=== PATIENT | female | born 2005 ===

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

== ENCOUNTER 2024-01-04 13:22 | Outpatient (AMB) | payer OTHER, SELFPAY ==
[2024-01-04 13:23] VITALS: BP 116/74; PULSE 91; O2SAT 99; BMI 35.5
--- NOTE | 2024-01-04 13:23 | A.OFFPC_ITS ---
Vital Signs 01/04/24 13:23 Height 5 ft 6 in Weight 220 lb 0.4 oz BMI 35.5 BP 116/74 Blood Pressure Location Lt brachial Position Sitting Pulse 91 Pulse Source Pulse Oximeter Pulse Oximetry (%) 99 Oxygen Delivery Method Room Air Intake Visit Reasons: new patient physical Meatman Required: No Allergies amoxicillin [From Augmentin] Allergy (Verified 01/04/24 13:35) Hives clavulanic acid [From Augmentin] Allergy (Verified 01/04/24 13:35) Hives Penicillins [PCN] Allergy (Verified 01/04/24 13:35) Hives Medication List - Last Reconciled 01/04/24 by Kenisha Booker PA-C albuterol sulfate 90 mcg/actuation (Ventolin HFA) inhalation cetirizine 10 mg PO DAILY lamotrigine 50 mg PO DAILY sertraline mg PO Tobacco use date assessed: 01/04/24 Dental Screening Dental Screen Date: 01/04/24 Did you have a dental visit in the last 12 months?: Yes Did you have a dental problem in the last 6 months where you did not have access to dental care?: No Was dental information given to patient?: Patient has dentist HPI new patient physical HPI Details 18-year-old female with no documented [facility] medical history coming to the office for the 1st time. Today she tells us she was previously seen by [facility] through [place] and does also follow with should any gynecology for routine Pap smears last completed this month. 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 She also follows with Trish Doyle for Psychiatry and [facility] for counseling. She feels her anxiety and depression is well managed. She does mentioned feeling occasionally fatigued but otherwise feels generally well. [facility] Surgical History History of lobectomy of lung Social History Housing: Apartment Alcohol intake: never Patient Tobacco Use Status: Never used Tobacco e-Cigarette/Vaping Use: Never Used service: No Current occupational status: employed Current occupation: Cognitive needs: No Hearing needs: No Vision needs: No Female Reproductive History Menstrual control method: none Questionnaire PHQ-9 Over the last 2 weeks, how often have you been bothered by any of the following problems? 1. Little interest or pleasure in doing things: more than half the days 2. Feeling down, depressed, or hopeless: more than half the days 3. Trouble falling or staying asleep, or sleeping too much: not at all 4. Feeling tired or having little energy: more than half the days 5. Poor appetite or overeating: more than half the days 6. Feeling bad about yourself - or that you are a failure or have let yourself or your family down: not at all 7. Trouble concentrating on things, such as reading the newspaper or watching television: not at all 8. Moving or speaking so slowly that other people could have noticed. Or the opposite - being so fidgety or restless that you have been moving around a lot more than usual: not at all 9. Thoughts that you would be better off or of hurting yourself in some way: not at all Total score: 8 Depression Screening Interpretation: Positive Depression Screening Follow-up: Existing condition and In treatment Depression Screening Done: Yes 64545 - PHQ-9 Billing: Yes Source: Developed by Drs. Darnell Wilcox, Carly Almaguer, Carlos Franco and colleagues, with an educational jessica from [employer]. Thrive Questionnaire Date Thrive assessed: 12/28/23 I am a: Patient What is your living situation today?: I have a steady place to live Within the past 12 months, did the food you bought not last and you didn't have the money to get more?: Sometimes True Within the past 12 months, did you worry whether your food would run out before you got money to buy more?: Sometimes True Do you have trouble paying for medicines?: No Do you have trouble getting transportation to medical appointments?: No Do you have trouble paying your heating and electricity bill?: No Do you have trouble taking care of your child, family member or friend?: No Do you have trouble with day-to-day activities such as bathing, preparing meals, shopping, managing finances, etc.?: No Are you currently unemployed and looking for a job?: No Are you interested in more education?: Yes Please select the resources that you would like help with: None Currently or been in a relationship where the following occur: No concerns reported THRIVE Score: 2 AUDIT C Alcohol Use Questionnaire (AUDIT-C) 1. How often do you have a drink containing alcohol?: Never 3. How often do you have six or more drinks on one occasion?: Never Total Score: 0 KARL-7 AMB Questionnaire KARL-7 Date KARL - 7 assessed: 01/04/24 Feeling nervous, anxious, or on edge: 2 = More than half the days Not being able to stop or control worryin = More than half the days Worrying too much about different things: 2 = More than half the days Trouble relaxin = Not at all Being so restless that it is hard to sit still: 0 = Not at all Becoming easily annoyed or irritable: 2 = More than half the days Feeling afraid as if something awful might happen: 0 = Not at all Total KARL-7 score (0-4 normal; 5-9 mild; 10-14 moderate; 15-21 severe): 8 Source: Developed by Drs. Darnell Wilcox, Carly Almaguer, Carlos Franco and colleagues, with an educational jessica from [employer]. KARL-7 Assessment Billing KARL-7 Assessment Tool: KARL-7 Assessment 80712 Review of Systems Const Denies body aches, Reports fatigue, Denies fever(s), Denies frequent falls, Denies headache(s) and Denies weakness Eyes Reports no additional complaints and Denies change in vision ENT Denies dysphagia, Denies dizziness, Denies facial pain, Denies headache(s), Denies nasal congestion and Denies odynophagia Card Denies chest pain, Denies syncope, Denies irregular heart rhythm, Denies leg edema, Denies lightheadedness and Denies dyspnea Resp Denies cough and Denies dyspnea GI Denies constipation, Denies dysphagia, Denies dyspepsia, Denies diarrhea, Denies nausea, Denies odynophagia and Denies vomiting Denies urinary frequency, Denies dysuria, Denies urinary hesitancy and Denies urinary urgency Musc Denies back pain and Denies myalgias Skin/Breast Reports system reviewed and no additional complaints, except as documented Neuro Denies dizziness, Denies syncope, Denies frequent falls, Denies headache(s) and Denies weakness Psych Reports no additional complaints Endo Reports fatigue Physical exam (Primary Care) Vital Signs: Last Vital Signs Pulse 91 01/04/24 13:23 BP 116/74 01/04/24 13:23 Pulse Ox 99 01/04/24 13:23 Oxygen Delivery Method Room Air 01/04/24 13:23 BMI result Body Mass Index 35.5 Tobacco/Smoking Status: Tobacco use Status Tobacco use date assessed 01/04/24 01/04/24 13:26 Patient Tobacco Use Status Never used Tobacco 01/04/24 13:39 e-Cigarette/Vaping Use Never Used 01/04/24 13:39 PHQ-9: PHQ-9 Score PHQ-9: Total score 8 01/04/24 13:40 Depression Screening Interpretation: Positive Depression Screening Follow-up: Existing condition and In treatment Thrive Assessment: Date of Thrive Assessment Date Thrive assessed 12/28/23 01/04/24 13:26 Currently or been in a relationship where the following occur: No concerns reported Const General: cooperative, healthy appearing, comfortable and no acute distress Orientation/consciousness: patient oriented x3 HENMT Head: Yes normocephalic Ears: hearing grossly normal bilaterally, external ears normal, TM's normal bilaterally and EAC's normal General nose exam: Normal external nose present Face and sinus: Yes normal facial exam and Yes sinuses nontender Mouth: Normal oral and palatal mucosa present and tongue normal Throat: Yes posterior oropharynx normal Eyes General: appearance normal, both eyes and all related structures Conjunctivae: conjunctivae normal Pupils: Equal, round and reactive pupils present EOM: EOMs intact bilaterally and No Nystagmus present Neck Neck: Yes normal visual inspection, Yes full ROM and Yes no lymphadenopathy Chest Chest palpation & inspection: normal inspection of the chest Resp Effort & Inspection: normal respiratory effort Auscultation: clear to auscultation bilaterally, no crackles, no rales, no rhonchi, no wheezes and breath sounds present Cardio Rate: regular rate Rhythm: regular rhythm Peripheral pulses: radial pulses present and dorsalis pedis present GI Inspection: Yes normal to inspection and No Abdominal wall edema Palpation (GI): Soft to palpation, not firm and nontender Auscultation: normal bowel sounds Rectal Exam - Female: deferred General: Yes no CVA tenderness Back/Spine/Pelvis Back: no CVA tenderness Skin General skin exam: no rashes or lesions noted Neuro General: patient oriented x3 Cranial nerves: Yes Equal, round and reactive pupils present, Yes Midline tongue present, Yes Ability to bilaterally elevate shoulders present and No Nystagmus present Gait exam (Neuro): Normal gait present Extrem General: Yes normal to inspection, Yes full ROM, No no pedal edema and No edema Psych Speech and movement: Normal speech and movement present Affect: normal affect Insight: Good insight present (Psych) Judgement: Good judgement present (Psych) Assessment and Plan Assessment & Plan (1) Mood disorder: Comment: Follows with [facility] for counseling Code(s): F39 - Unspecified mood [affective] disorder Plan: Continue on current med regimen. (2) Depression: Comment: Follows with Trish Doyle [facility] for counseling Code(s): F32.A - Depression, unspecified Plan: PHQ 9 and KARL-7 mildly positive today patient denies active feelings of anxiety or depression. Continue on current med regimen. She does mentioned she is not completely satisfied with [facility] for counseling and would like to be referred to another counselor at this time. Referral placed today. (3) Anxiety: Comment: Follows with Trish Doyle [facility] for counseling Code(s): F41.9 - Anxiety disorder, unspecified Plan: PHQ 9 and KARL-7 mildly positive today patient denies active feelings of anxiety or depression. Continue on current med regimen. (4) Asthma: Code(s): J45.909 - Unspecified asthma, uncomplicated Plan: She uses her inhaler daily during allergy season however otherwise uses it very rarely. Continue on current regimen and continue to avoid triggers such as allergens and smoke. (5) Annual physical exam: Code(s): Z00.00 - Encounter for general adult medical examination without abnormal findings Plan: Patient is up-to-date on all recommended routine screenings and vaccinations for her age. Updated blood work ordered today and follow up in 1 year or sooner if new problems arise. Plan This note was constructed using voice recognition software. While every effort has been made to ensure accuracy and exercise physiologist, still areas may have been included sometimes these areas may affect the content or meeting of the given symptoms. Total time spent caring for the patient today was 30 minutes. This includes time spent before the visit reviewing the chart, time spent during the visit, and time spent after the visit and documentation. Orders: Orders Comprehensive Met. Panel Today Z00.00 - Encounter for general adult medical examination without abnormal findings Vitamin B12 and Folate Today Z00.00 - Encounter for general adult medical examination without abnormal findings IRON PROFILE Today Z00.00 - Encounter for general adult medical examination without abnormal findings Complete Blood Count Auto Diff Today Z00.00 - Encounter for general adult medical examination without abnormal findings Free T4 (Free Thyroxine) Today Z00.00 - Encounter for general adult medical examination without abnormal findings TSH reflex Free T4 Today Z00.00 - Encounter for general adult medical examination without abnormal findings Vitamin D 25-OH (D2 and D3) Today Z00.00 - Encounter for general adult medical examination without abnormal findings Referrals Counseling Referral F32.A - Depression, unspecified, F39 - Unspecified mood [affective] disorder, F41.9 - Anxiety disorder, unspecified Coding Level of Care Code New Pt Prev Care 18-39yr([id number] Diagnoses Mood disorder F39 Depression F32.A Anxiety F41.9 Asthma J45.909 Annual physical exam Z00.00 Additional Codes KARL-7 Assessment Billing - KARL-7 Assessment Tool: KARL-7 Assessment 17058 ([id number])
== END 2024-01-04 13:53 | disposition home or self-care (01) ==
DX: F39 Unspecified mood [affective] disorder (principal); F32.A Depression, unspecified; F41.9 Anxiety disorder, unspecified; J45.909 Unspecified asthma, uncomplicated; Z00.00 Encounter for general adult medical examination without abnormal findings

== ENCOUNTER 2024-01-04 13:22 | Outpatient (REF) | payer OTHER, SELFPAY ==
[2024-01-04 14:32] LABS: Basophils Absolute Auto 0.1 X10*3/uL (0.0-0.2); Basophils Percent Auto 0.6 % (0-2); Eosinophils Absolute Auto 0.1 X10*3/uL (0.0-0.4); Eosinophils Percent Auto 1.2 % (0-4); Hematocrit 44.1 % (37.0-47.0); Hemoglobin 14.5 g/dl (12.0-16.0); Imm Gran Abs Auto 0.03 X10*3/uL (0.00-0.03); Imm Gran Pct Auto 0.3 % (0.0-0.4); Lymphocytes Absolute Auto 2.4 X10*3/uL (1.2-4.9); Lymphocytes Percent Auto 28.3 % (20-40); MANUAL DIFF FLAG SCAN; Mean Corpuscular HGB Conc 32.9 g/dl (31.0-35.0); Mean Corpuscular Hemoglobin 27.9 pg (27.0-33.0); Mean Corpuscular Volume 84.8 fL (80.0-98.0); Mean Platelet Volume 9.7 fL (9.4-12.3); Monocytes Absolute Auto 0.7 X10*3/uL (0.1-1.2); Monocytes Percent Auto 7.8 % (2-11); Neutrophils Absolute Auto 5.3 x10*3/uL (2.0-8.3); Neutrophils Percent Auto 61.8 % (45-73); PLT CLUMP 1; Red Cell Distribution Width 13.2 % (11.0-16.0); SCAN SMEAR FLAG 1; White Blood Count 8.6 X10*3/uL (4.8-10.8)
[2024-01-04 15:05] LABS: Alanine Aminotransferase 15 U/L (0-31); Alkaline Phosphatase 91 U/L (39-117); Anion Gap 11 (12-20); Aspartate Amino Transferase 24 U/L (5-31); Bilirubin Total 0.3 mg/dL (0.0-1.0); Blood Urea Nitrogen 14 mg/dL (9-16); Calcium 9.3 mg/dL (8.4-10.2); Carbon Dioxide 25 mmol/L (22-29); Chloride 109 mmol/L (96-108); Estimated Glomerular Filt Rate > 60; Glucose Random 87 mg/dL (60-115); Iron 85 mcg/dL (30-160); Percent Iron Saturation 29 % (15-50); Sodium 140 mmol/L (135-145); Total Iron Binding Capacity 296 mcg/dL (228-428); Total Protein 7.6 g/dL (6.5-8.0); Unsaturated Iron Binding 211 ug/dL
[2024-01-04 15:19] LABS: Platelet Count 288 X10*3/uL (160-400); SLIDE REVIEW VERIFIED
[2024-01-04 15:21] LABS: Free T4 (Free Thyroxine) 0.93 ng/dL (0.71-1.85); TSH reflex Free T4 1.53 uIU/mL (0.32-4.0)
[2024-01-04 15:31] LABS: Folate 11.9 ng/mL (> or = 4.0); Vitamin B12 478 pg/mL (200-900)
[2024-01-09 00:14] LABS: Vitamin D 25-OH, D2 <4 ng/mL; Vitamin D 25-OH, D3 20 ng/mL; Vitamin D 25-OH, Total 20 ng/mL (30-100)
== END 2024-01-04 13:23 | disposition home or self-care (01) ==
LOC: HO.LAB 13:22
DX: Z00.00 Encounter for general adult medical examination without abnormal findings (principal); F39 Unspecified mood [affective] disorder; F32.A Depression, unspecified; F41.9 Anxiety disorder, unspecified; J45.909 Unspecified asthma, uncomplicated
CPT/HCPCS: 36415; 80053; 82306; 82607; 82746; 83540; 84439; 84443; 85025; 96127; 99385

== ENCOUNTER 2024-02-08 15:29 | Outpatient (AMB) | payer OTHER, SELFPAY ==
--- NOTE | 2024-02-08 16:13 | AM.OFFVISNUR ---
Intake Visit Reasons: FluShot Allergies amoxicillin [From Augmentin] Allergy (Verified 01/04/24 13:35) Hives clavulanic acid [From Augmentin] Allergy (Verified 01/04/24 13:35) Hives Penicillins [PCN] Allergy (Verified 01/04/24 13:35) Hives Office Procedures Flu Questionnaire Does the patient have a severe egg allergy?: No Does the patient have severe life threatening allergies?: No Does the patient have a fever or illness today?: No Has the patient ever had Guillain-Sheridan Syndrome?: No Has the patient ever had any past reaction to a flu shot?: No Assessment & Plan Assessment & Plan Orders: Orders Influenza [id number] Immunization Today Z23 - Encounter for immunization Medications: New Fluarix Triv [id number] (PF) (flu vacc [id number] 6mos up(PF)) 0.5 mL IM ONCE 0.5 mL 0RF NS Z23 - Encounter for immunization
== END 2024-02-08 16:15 | disposition home or self-care (01) ==
LOC: HO.HMCH 15:30
DX: Z23 Encounter for immunization (principal)

== ENCOUNTER → 2024-02-08 15:29 | Outpatient (BNVA) | payer OTHER, SELFPAY | DX: Z23 Encounter for immunization (principal) | CPT/HCPCS: 90471; 90656 ==

== ENCOUNTER 2024-09-13 11:26 | Outpatient (AMB) | payer OTHER, SELFPAY ==
--- NOTE | 2024-09-13 11:30 | A.OFFPC_ITS ---
Vital Signs 09/13/24 11:32 Height 5 ft 6 in Weight 217 lb 8 oz BMI 35.1 BP 122/62 Blood Pressure Location Lt brachial Position Sitting Pulse 108 H Pulse Source Pulse Oximeter Temp 97.3 F Temp Source Temporal Artery Scan Pulse Oximetry (%) 98 Oxygen Delivery Method Room Air Intake Visit Reasons: follow up Intake Note: Patient is here to follow up on Asthma, Anxiety and medication review Commercial Makeup Artist Required: No Mapping Technician: Not Required per policy Accompanied by: Self / Same As Patient Allergies amoxicillin [From Augmentin] Allergy (Verified 09/13/24 11:49) Hives clavulanic acid [From Augmentin] Allergy (Verified 09/13/24 11:49) Hives Penicillins [PCN] Allergy (Verified 09/13/24 11:49) Hives Medication List - Last Reconciled 09/13/24 by Kenisha Booker PA-C albuterol sulfate 90 mcg/actuation (Ventolin HFA) inhalation cetirizine 10 mg PO DAILY cholecalciferol (vitamin D3) 25 mcg PO DAILY lamotrigine 50 mg PO DAILY sertraline mg PO Tobacco use date assessed: 09/13/24 Dental Screening Dental Screen Date: 09/13/24 Did you have a dental visit in the last 12 months?: Yes Did you have a dental problem in the last 6 months where you did not have access to dental care?: No Was dental information given to patient?: Patient has dentist HPI follow up HPI Details 19-year-old female with past medical his tory of asthma, anxiety, depression and mood disorder last seen 12/2023 coming in for follow up. Presenting with concerns regarding peripheral edema and hair thinning. Peripheral edema was noted during a vacation, likely exacerbated by higher salt intake and increased walking. The condition improved with the use of compression stockings, hydration, and leg elevation. Reports of significant hair thinning, with a family history of hair loss on her father's side. Patient inquired about the use of biotin supplements and minoxidil (Rogaine) for hair regrowth. Concerns about minoxidil toxicity to her pet cats were discussed due to ownership of cats. Patient has a stable mood history without current use of sertraline, lamotrigine, or other mood stabilizers. Previous therapy via [facility] has been discontinued. [facility] Surgical History History of lobectomy of lung Family History Other Mental health disorder Social History Housing: Apartment Alcohol intake: never Patient Tobacco Use Status: Never used Tobacco e-Cigarette/Vaping Use: Never Used Second Hand Smoke Exposure: No service: No Current occupational status: employed Current occupation: Cognitive needs: No Hearing needs: No Vision needs: No Questionnaire PHQ-9 Over the last 2 weeks, how often have you been bothered by any of the following problems? 1. Little interest or pleasure in doing things: not at all 2. Feeling down, depressed, or hopeless: not at all 3. Trouble falling or staying asleep, or sleeping too much: not at all 4. Feeling tired or having little energy: several days 5. Poor appetite or overeating: not at all 6. Feeling bad about yourself - or that you are a failure or have let yourself or your family down: not at all 7. Trouble concentrating on things, such as reading the newspaper or watching television: not at all 8. Moving or speaking so slowly that other people could have noticed. Or the opposite - being so fidgety or restless that you have been moving around a lot more than usual: not at all 9. Thoughts that you would be better off or of hurting yourself in some way: not at all Total score: 1 Depression Screening Interpretation: Negative Depression Screening Done: Yes Source: Developed by Drs. Darnell Wilcox, Carly Almaguer, Carlos Franco and colleagues, with an educational jessica from [employer] O[employer]. Thrive Questionnaire Date Thrive assessed: 09/11/24 I am a: Patient What is your living situation today?: I have a steady place to live Within the past 12 months, did the food you bought not last and you didn't have the money to get more?: Never true Within the past 12 months, did you worry whether your food would run out before you got money to buy more?: Never true Do you have trouble paying for medicines?: Yes Do you have trouble getting transportation to medical appointments?: No Do you have trouble paying your heating and electricity bill?: No Do you have trouble taking care of your child, family member or friend?: No Do you have trouble with day-to-day activities such as bathing, preparing meals, shopping, managing finances, etc.?: No Are you currently unemployed and looking for a job?: No Are you interested in more education?: No Please select the resources that you would like help with: None Currently or been in a relationship where the following occur: No concerns reported THRIVE Score: 0 AUDIT C Alcohol Use Questionnaire (AUDIT-C) 1. How often do you have a drink containing alcohol?: Never 3. How often do you have six or more drinks on one occasion?: Never Total Score: 0 KARL-7 AMB Questionnaire KARL-7 Date KARL - 7 assessed: 09/13/24 Feeling nervous, anxious, or on edge: 2 = More than half the days Not being able to stop or control worryin = Nearly every day Worrying too much about different things: 3 = Nearly every day Trouble relaxin = Several days Being so restless that it is hard to sit still: 0 = Not at all Becoming easily annoyed or irritable: 3 = Nearly every day Feeling afraid as if something awful might happen: 3 = Nearly every day Total KARL-7 score (0-4 normal; 5-9 mild; 10-14 moderate; 15-21 severe): 15 Source: Developed by Drs. Darnell Wilcox, Craly Almaguer, Carlos Franco and colleagues, with an educational jessica from [employer]. KARL-7 Assessment Billing KARL-7 Assessment Tool: KARL-7 Assessment 70925 Review of Systems Const Denies body aches, Denies chills, Denies fever(s), Denies headache(s) and Denies poor appetite Eyes Reports no additional complaints ENT Denies dysphagia, Denies dizziness, Denies headache(s) and Denies odynophagia Card Denies chest pain, Denies syncope, Denies edema, Denies irregular heart rhythm, Denies lightheadedness and Denies dyspnea Resp Denies cough and Denies dyspnea GI Denies abdominal pain, Denies constipation, Denies dysphagia, Denies diarrhea, Denies nausea, Denies odynophagia and Denies vomiting Reports no additional complaints Musc Reports no additional complaints and Denies abnormal gait Skin/Breast Reports system reviewed and no additional complaints, except as documented Neuro Denies abnormal gait, Denies dizziness, Denies syncope and Denies headache(s) Psych Reports no additional complaints Physical exam (Primary Care) Vital Signs: Last Vital Signs Temp 97.3 F 09/13/24 11:32 Pulse 108 H 09/13/24 11:32 BP 122/62 09/13/24 11:32 Pulse Ox 98 09/13/24 11:32 Oxygen Delivery Method Room Air 09/13/24 11:32 BMI result Body Mass Index 35.1 Tobacco/Smoking Status: Tobacco use Status Tobacco use date assessed 09/13/24 09/13/24 11:32 Patient Tobacco Use Status Never used Tobacco 09/13/24 11:32 e-Cigarette/Vaping Use Never Used 09/13/24 11:32 PHQ-9: PHQ-9 Score PHQ-9: Total score 1 09/13/24 11:32 Depression Screening Interpretation: Negative Thrive Assessment: Date of Thrive Assessment Date Thrive assessed 09/11/24 09/13/24 11:32 Currently or been in a relationship where the following occur: No concerns reported Const General: cooperative, healthy appearing, comfortable and no acute distress Orientation/consciousness: patient oriented x3 HENMT Head: Yes normocephalic Ears: hearing grossly normal bilaterally General nose exam: Normal external nose present Eyes General: appearance normal, both eyes and all related structures Conjunctivae: conjunctivae normal Neck Neck: Yes full ROM and Yes no lymphadenopathy Resp Effort & Inspection: normal respiratory effort Auscultation: clear to auscultation bilaterally, no crackles, no rales, no rhonchi and no wheezes Cardio Rate: regular rate Rhythm: regular rhythm Skin General skin exam: no rashes or lesions noted Neuro General: patient oriented x3 Gait exam (Neuro): Normal gait present Extrem General: Yes normal to inspection, Yes full ROM and No edema Psych Affect: normal affect Attitude: cooperative Insight: Good insight present (Psych) Judgement: Good judgement present (Psych) Coding Level of Care Code Est Pt Level 3 (85071) Diagnoses Asthma J45.909 Depression F32.A Mood disorder F39 Anxiety F41.9 Additional Codes KARL-7 Assessment Billing - KARL-7 Assessment Tool: KARL-7 Assessment 99323 ([id number]) Assessment & Plan Assessment & Plan (1) Asthma: Code(s): J45.909 - Unspecified asthma, uncomplicated Category: Medical Plan: Asthma currently controlled on present medications. Continue on albuterol prn.? Avoid triggers such as allergies. (2) Depression: Code(s): F32.A - Depression, unspecified Category: Medical Plan: Patient is no longer following with psychiatry or counseling in his discontinued her medications. This abrupt discontinuation happen after loss of insurance. She feels good without these medications and would like to continue to keep off of them at this time and declines the need for counseling. She agrees to reach out if anything should change. (3) Mood disorder: Code(s): F39 - Unspecified mood [affective] disorder Category: Medical Plan: See above (4) Anxiety: Code(s): F41.9 - Anxiety disorder, unspecified Category: Medical Plan: See above Plan The patient presented with concerns of peripheral edema and hair thinning. The peripheral edema has resolved through dietary modifications and physical measures, including compression stockings and hydration. Regarding hair thinning, biotin-containing supplements and minoxidil were discussed as management options, along with safety precautions for her cats. She is stable neurologically and has discontinued previous mood-controlling medications. Vitamin D supplementation will be continued, and routine bloodwork is planned for later this year. Follow-up conversations will address asthma control and psychological well-being as needed. This note was constructed using voice recognition software. While every effort has been made to ensure accuracy and education assistant, still areas may have been included sometimes these areas may affect the content or meeting of the given symptoms. Total time spent caring for the patient today was 20 minutes. This includes time spent before the visit reviewing the chart, time spent during the visit, and time spent after the visit and documentation. Patient was informed and verbally consented to the use of an ambient scribe for clinic note document ation during this visit. Orders: Orders Free T4 (Free Thyroxine) Today F32.A - Depression, unspecified, Z00.00 - Encounter for general adult medical examination without abnormal findings Complete Blood Count Auto Diff Today F41.9 - Anxiety disorder, unspecified, Z 00.00 - Encounter for general adult medical examination without abnormal findings Comprehensive Met. Panel Today F41.9 - Anxiety disorder, unspecified, Z00.00 - Encounter for general adult medical examination without abnormal findings Vitamin B12 and Folate Today F32.A - Depression, unspecified, Z13.21 - Encounter for screening for nutritional disorder Vitamin D 25-OH Total Today F32.A - Depression, unspecified, Z00.00 - Encounter for general adult medical examination without abnormal findings TSH reflex Free T4 Today F32.A - Depression, unspecified, Z00.00 - Encounter for general adult medical examination without abnormal findings Medications: Refilled cholecalciferol (vitamin D3) 25 mcg PO DAILY 90 caps 3RF cholecalciferol (vitamin D3) 25 mcg PO DAILY 90 caps 3RF
[2024-09-13 11:32] VITALS: BP 122/62; PULSE 108; TEMP 36.3; O2SAT 98; BMI 35.1
--- OUTSIDE RECORDS SUMMARY | 2024-09-13 12:15 | XMS_ITS | Data Portability ---
Author Organization [facility], [id number] Address [address] [place] [address] Assessment No assessment recorded. Plan of Treatment Reminders Order Date Submit Date Provider Last Modified By Organization Details Last Modified Time Details Appointments None record ed. Lab None record ed. Referral None record ed. Procedures None record ed. Surgeries None record ed. Imaging None record ed. Medication Orders None record ed. Patient TargetsNo targets recorded. Patient InstructionsNo instructions recorded. Reason for Referral None Reported. Medical Equipment None Reported. Medications Name Sig Start Date Stop Date Status Note LastModified by Organization Details LastModified Time doxycycline hyclate 100 mg capsule TAKE 1 CAPSULE BY MOUTH TWICE A DAY FOR 7 DAYS active Not Available Not Available No t Available cetirizine 10 mg tablet TAKE 1 TABLET BY MOUTH EVERY DAY active Not Available Not Available No t Available polymyxin B sulfate 10,000 unit-trimethop rim 1 mg/mL eye drops INSTILL 1 DROP IN THE EYE EVERY 3 HOURS FOR 10 DAYS DO NOT EXCEED 6 DOSES IN 24 HOURS active Not Available Not Available No t Available sertraline 25 mg tablet TAKE 1 TABLET BY MOUTH EVERY DAY IN THE MORNING active Not Available Not Available No t Available ketoconazole 2 % topical cream APPLY TO AFFECTED AREA TWICE A DAY active Not Available Not Available No t Available fluticasone propionate 50 mcg/actuation nasal spray,suspensi on INSTILL 1 TO 2 SPRAYS IN BOTH NOSTRLS 2 TIMES A DAY active Not Available Not Available No t Available sertraline 50 mg tablet TAKE 1 AND 1/2 TABLETS BY MOUTH EVERY MORNING active Not Available Not Available No t Available doxycycline hyclate 100 mg tablet TAKE 1 TABLET BY MOUTH TWICE A DAY FOR 7 DAYS active Not Available Not Available No t Available Ventolin HFA 90 mcg/actuation aerosol inhaler INHALE 2-6 PUFFS EVERY 4 HOURS USE WITH SPACER CHAMBER NEEDED FOR WHEEZING/ SHORTNESS OF BREATH active Not Available Not Available No t Available Vitals None Recorded Social History None recorded. Functional Status None recorded. Mental Status None recorded. Family History Nothing Reported. Medical History No medical history recorded. Gynecological HistoryNo gynecological history recorded. Obstetrics History GPAL:G 0 P 0 0 0 0 Past Encounters Encounter ID Performer Location Encounter Start Date Encounter Closed Date Diagnosis/Indication Diagnosis SNOMED-CT Code Diagnosis ICD10 Code Diagnosis Note [id number] [facility] [facility] [place] [address] 03/06/2021 15:53:03 03/06/2021 17:22:49 [id number] [address] [place] [address] 05/18/2020 15:01:03 05/18/2020 17:19:11 Health Concerns Section Related Observation LastModified by Organization Detai ls LastModified Time None Recorded Concern Status LastModified by Organization Details LastModified Time None Recorded Advance Directives Directive None Recorded Payers Insurance Date Sequence Insurance Name Policy Number Policy Blair Covered Member ID Blair Member ID Guarantor Name 11/23/2022 1 [place]ICAID[place]: [facility] Samreen Clements [id number] Samreen Clements OBGyn Episode No OBEpisode recorded.
== END 2024-09-13 12:37 | disposition home or self-care (01) ==
LOC: HO.HMCH 11:27
DX: J45.909 Unspecified asthma, uncomplicated (principal); F32.A Depression, unspecified; F39 Unspecified mood [affective] disorder; F41.9 Anxiety disorder, unspecified

== ENCOUNTER → 2024-09-13 11:26 | Outpatient (BNVA) | payer OTHER, SELFPAY | DX: R60.0 Localized edema (principal); J45.909 Unspecified asthma, uncomplicated; F41.9 Anxiety disorder, unspecified; F32.A Depression, unspecified | CPT/HCPCS: 96127 ==

== ENCOUNTER 2025-01-06 11:38 | Outpatient (AMB) | payer OTHER, SELFPAY ==
[2025-01-06 11:44] VITALS: BP 102/60; PULSE 96; O2SAT 98; BMI 33.6
--- NOTE | 2025-01-06 11:44 | MHC.PC.OV ---
Vital Signs 01/06/25 11:44 Height 5 ft 6 in Weight 208 lb 8 oz BMI 33.6 BP 102/60 Blood Pressure Location Lt brachial Position Sitting Pulse 96 Pulse Source Pulse Oximeter Pulse Oximetry (%) 98 Oxygen Delivery Method Room Air Intake Visit Reasons: Annual Exam Faculty Research Physician Required: No Accompanied by: Self / Same As Patient Allergies amoxicillin (From Augmentin) Allergy (Verified 01/06/25 11:55) Hives clavulanic acid (From Augmentin) Allergy (Verified 01/06/25 11:55) Hives Penicillins (PCN) Allergy (Verified 01/06/25 11:55) Hives Medication List - Last Reconciled 01/06/25 by Kenisha Booker PA-C albuterol sulfate 90 mcg/actuation (Ventolin HFA) inhalation cetirizine 10 mg PO DAILY cholecalciferol (vitamin D3) 25 mcg PO DAILY norethindrone-e.estradiol-iron 1 mg-20 mcg (21)/75 mg (7) (04/29 (28)) 1 tab PO DAILY Tobacco use date assessed: 01/06/25 Dental Screening Dental Screen Date: 01/06/25 Did you have a dental visit in the last 12 months?: Yes Did you have a dental problem in the last 6 months where you did not have access to dental care?: No Was dental information given to patient?: Patient has dentist HPI Annual Exam HPI Details 19-year-old female with past medical history of asthma, anxiety, depression and mood disorder last seen 09/2024 coming in for annual exam. Presenting with an annual wellness visit and concerns related to depression and anxiety. Previously on sertraline, discontinued due to decreased libido. Currently seeing a therapist. Describes episodes of staring and blurred vision, discussed as potentially ADHD-related. 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 pap smears: Up-to-date through [facility] vaccines: [facility] History History of lobectomy of lung Family History Other Mental health disorder Social History Housing: Apartment Alcohol intake: never Patient Tobacco Use Status: Never used Tobacco e-Cigarette/Vaping Use: Never Used Second Hand Smoke Exposure: No service: No Current occupational status: employed Current occupation: Cognitive needs: No Hearing needs: No Vision needs: No Questionnaire PHQ-9 Over the last 2 weeks, how often have you been bothered by any of the following problems? 1. Little interest or pleasure in doing things: not at all 2. Feeling down, depressed, or hopeless: not at all 3. Trouble falling or staying asleep, or sleeping too much: not at all 4. Feeling tired or having little energy: several days 5. Poor appetite or overeating: not at all 6. Feeling bad about yourself - or that you are a failure or have let yourself or your family down: not at all 7. Trouble concentrating on things, such as reading the newspaper or watching television: not at all 8. Moving or speaking so slowly that other people could have noticed. Or the opposite - being so fidgety or restless that you have been moving around a lot more than usual: not at all 9. Thoughts that you would be better off or of hurting yourself in some way: not at all Total score: 1 Depression Screening Interpretation: Negative Depression Screening Done: Yes Source: Developed by Drs. Darnell Wilcox, Carly Almaguer, Carlos Franco and colleagues, with an educational jessica from [employer]. Thrive Questionnaire Date Thrive assessed: 09/11/24 I am a: Patient What is your living situation today?: I have a steady place to live Within the past 12 months, did the food you bought not last and you didn't have the money to get more?: Never true Within the past 12 months, did you worry whether your food would run out before you got money to buy more?: Never true Do you have trouble paying for medicines?: Yes Do you have trouble getting transportation to medical appointments?: No Do you have trouble paying your heating and electricity bill?: No Do you have trouble taking care of your child, family member or friend?: No Do you have trouble with day-to-day activities such as bathing, preparing meals, shopping, managing finances, etc.?: No Are you currently unemployed and looking for a job?: No Are you interested in more education?: No Please select the resources that you would like help with: None Currently or been in a relationship where the following occur: No concerns reported THRIVE Score: 0 AUDIT C Alcohol Use Questionnaire (AUDIT-C) 1. How often do you have a drink containing alcohol?: Never 3. How often do you have six or more drinks on one occasion?: Never Total Score: 0 KARL-7 AMB Questionnaire KARL-7 Date KARL - 7 assessed: 09/13/24 Feeling nervous, anxious, or on edge: 2 = More than half the days Not being able to stop or control worryin = Nearly every day Worrying too much about different things: 3 = Nearly every day Trouble relaxin = Several days Being so restless that it is hard to sit still: 0 = Not at all Becoming easily annoyed or irritable: 3 = Nearly every day Feeling afraid as if something awful might happen: 3 = Nearly every day Total KARL-7 score (0-4 normal; 5-9 mild; 10-14 moderate; 15-21 severe): 15 Source: Developed by Drs. Darnell Wilcox, Carly Almaguer, Carlos Franco and colleagues, with an educational jessica from [employer]. Review of Systems Const Denies body aches, Denies chills, Denies fever(s), Denies headache(s) and Denies poor appetite Eyes Reports no additional complaints ENT Denies dysphagia, Denies dizziness, Denies headache(s) and Denies odynophagia Card Denies chest pain, Denies syncope, Denies edema, Denies irregular heart rhythm, Denies lightheadedness and Denies dyspnea Resp Denies cough and Denies dyspnea GI Denies abdominal pain, Denies constipation, Denies dysphagia, Denies diarrhea, Denies nausea, Denies odynophagia and Denies vomiting Reports no additional complaints Musc Reports no additional complaints and Denies abnormal gait Skin/Breast Reports system reviewed and no additional complaints, except as documented Neuro Denies abnormal gait, Denies dizziness, Denies syncope and Denies headache(s) Psych Reports no additional complaints Physical exam (Primary Care) Vital Signs: Last Vital Signs Pulse 96 01/06/25 11:44 BP 102/60 01/06/25 11:44 Pulse Ox 98 01/06/25 11:44 Oxygen Delivery Method Room Air 01/06/25 11:44 BMI result Body Mass Index 33.6 Tobacco/Smoking Status: Tobacco use Status Tobacco use date assessed 01/06/25 01/06/25 11:52 Patient Tobacco Use Status Never used Tobacco 01/06/25 11:52 e-Cigarette/Vaping Use Never Used 01/06/25 11:52 PHQ-9: PHQ-9 Score PHQ-9: Total score 1 01/06/25 12:24 Depression Screening Interpretation: Negative Thrive Assessment: Date of Thrive Assessment Date Thrive assessed 09/11/24 01/06/25 11:52 Currently or been in a relationship where the following occur: No concerns reported Const General: cooperative, healthy appearing, comfortable and no acute distress Orientation/consciousness: patient oriented x3 HENMT Head: Yes normocephalic Ears: hearing grossly normal bilaterally General nose exam: Normal external nose present Eyes General: appearance normal, both eyes and all related structures Conjunctivae: conjunctivae normal Neck Neck: Yes full ROM and Yes no lymphadenopathy Resp Effort & Inspection: normal respiratory effort Auscultation: clear to auscultation bilaterally, no crackles, no rales, no rhonchi and no wheezes Cardio Rate: regular rate Rhythm: regular rhythm Skin General skin exam: no rashes or lesions noted Neuro General: patient oriented x3 Gait exam (Neuro): Normal gait present Extrem General: Yes normal to inspection, Yes full ROM and No edema Psych Affect: normal affect Attitude: cooperative Insight: Good insight present (Psych) Judgement: Good judgement present (Psych) Immunizations Boostrix Tdap 2.5 Lf unit-8 mcg-5 Lf/0.5 mL intramuscular syringe Performing Provider: Kenisha Booker PA-C Performing Location[facility] [place] Administered by: Ruthann Frey CMA on 01/06/25 12:24 Dose Route Admin Location Dispensed Lot Number Expiration Date [facility] [place]NOTE 2] Tank Pumper 0.5 mL IM Left Deltoid 0.5 mL [id number] 02/27/27 [id number] [employer] Total Dispensed Waste 0.5 mL 0 % VIS Given Date VIS Provided VIS Publication Date 01/06/25 Single Vaccine 20 Eligibility Eligibility Date Funding Source Not [facility] Eligible 01/06/25 Private Coding Level of Care Code Est Pt Prev Care 18-39y(03932) Diagnoses Annual physical exam Z00.00 Anxiety F41.9 Mood disorder F39 Depression F32.A Asthma J45.909 Absence seizure G40.A09 Obesity E66.9 Assessment & Plan Assessment & Plan (1) Annual physical exam: Code(s): Z00.00 - Encounter for general adult medical examination without abnormal findings Category: Medical Plan: Patient is up-to-date on all recommended routine screenings and vaccinations for her age. Reminded patient about blood work today. Healthy diet and regular exercise is encouraged. Tetanus vaccine was updated today. She will schedule a flu vaccine when we have it available (2) Anxiety: Code(s): F41.9 - Anxiety disorder, unspecified Category: Medical Plan: The patient has discontinued sertraline due to decreased libido and is considering starting Wellbutrin, which has a lower risk of sexual side effects. Wellbutrin will be initiated at once daily for a week, then increased to twice daily, with the option to adjust based on tolerance. (3) Mood disorder: Code(s): F39 - Unspecified mood [affective] disorder Category: Medical Plan: See above (4) Depression: Code(s): F32.A - Depression, unspecified Category: Medical Plan: See above (5) Asthma: Code(s): J45.909 - Unspecified asthma, uncomplicated Category: Medical Plan: Asthma currently controlled on present medications. Continue on albuterol as needed. Avoid triggers such as allergies. (6) Absence seizure: Comment: history but believes she had one recently Code(s): G40.A09 - Absence epileptic syndrome, not intractable, without status epilepticus Category: Medical Plan: Patient has been having episodes of staring with full consciousness. I do not believe this is an absence seizure as she is fully aware of the episodes while they were happening and is able to respond to outside stimuli. I will however refer to Neurology at patient request today (7) Obesity: Code(s): E66.9 - Obesity, unspecified Category: Medical Plan: Healthy diet and regular exercise is encouraged. Plan This note was constructed using voice recognition software. While every effort has been made to ensure accuracy and truck mechanic apprentice, still areas may have been included sometimes these areas may affect the content or meeting of the given symptoms. Total time spent caring for the patient today was 30 minutes. This includes time spent before the visit reviewing the chart, time spent during the visit, and time spent after the visit and documentation. Patient was informed and verbally consented to the use of an ambient scribe for clinic note documentation during this visit. Orders: Orders TDaP Immunization Today Z23 - Encounter for immunization Referrals Neurology Referral G40.A09 - Absence epileptic syndrome, not intractable, without status epilepticus Medications: New bupropion HCl 100 mg PO BID 180 tabs 0RF
== END 2025-01-06 12:32 | disposition home or self-care (01) ==
DX: Z00.00 Encounter for general adult medical examination without abnormal findings (principal); G40.A09 Absence epileptic syndrome, not intractable, without status epilepticus; E66.9 Obesity, unspecified; Z68.33 Body mass index [BMI] 33.0-33.9, adult; F41.9 Anxiety disorder, unspecified; F39 Unspecified mood [affective] disorder; F32.A Depression, unspecified; J45.909 Unspecified asthma, uncomplicated; Z23 Encounter for immunization

== ENCOUNTER → 2025-01-06 11:38 | Outpatient (BNVA) | payer OTHER, SELFPAY | DX: Z00.00 Encounter for general adult medical examination without abnormal findings (principal); J45.909 Unspecified asthma, uncomplicated; F41.9 Anxiety disorder, unspecified; F32.A Depression, unspecified; G40.A09 Absence epileptic syndrome, not intractable, without status epilepticus; E66.9 Obesity, unspecified; Z23 Encounter for immunization; Z68.33 Body mass index [BMI] 33.0-33.9, adult | CPT/HCPCS: 90471; 90715; 96127 ==

== ENCOUNTER 2025-01-10 09:12 | Outpatient (AMB) | payer OTHER, SELFPAY ==
--- NOTE | 2025-01-10 09:19 | A.OFFVIS_ITS ---
Vital Signs 01/10/25 09:20 Height 5 ft 6 in Weight 209 lb 2 oz BMI 33.7 BP 120/82 Blood Pressure Location Rt brachial Position Sitting Pulse 83 Pulse Source Pulse Oximeter Pulse Oximetry (%) 97 Oxygen Delivery Method Room Air Intake Visit Reasons: INP- Absence epileptic syndrome, not intractable Intake Note: Epileptic syndrome Jigger Operator Required: No Accompanied by: Self / Same As Patient Allergies amoxicillin (From Augmentin) Allergy (Verified 01/10/25 09:20) Hives clavulanic acid (From Augmentin) Allergy (Verified 01/10/25 09:20) Hives Penicillins (PCN) Allergy (Verified 01/10/25 09:20) Hives HPI Comments Details: 19y/o female comes for evaluation of seizures. As a child she had febrile seizures.Her last childhood seizure was at age 6 ( but generalized tonic clonic seizures). But she was told that she had absence seizures. 2 months ago she had an episode of staring - she was aware of her surroundings but felt like tunnel vision for less than a minute, had palpitations as she was anxious. she was in a car with her boyfriend driving. The whole episode was less than 1 minute. she reports more staring episodes without tunnel vision - but during all these episodes she is aware of surroundings and is associated with palpitations. All these episodes are when she is standing or sitting . she has h/o panic attacks - usually heart rcaing pacing sweaty hand etc [facility] Medical History (Updated 01/10/25 @ 09:52 by Leah Friedman MD) Staring episodes Surgical History History of lobectomy of lung Family History Other Mental health disorder Social History Housing: Apartment Alcohol intake: never Patient Tobacco Use Status: Never used Tobacco e-Cigarette/Vaping Use: Never Used Second Hand Smoke Exposure: No service: No Current occupational status: employed Current occupation: Cognitive needs: No Hearing needs: No Vision needs: No Physical Exam Vital Signs: Last Vital Signs Pulse 83 01/10/25 09:20 BP 120/82 01/10/25 09:20 Pulse Ox 97 01/10/25 09:20 Oxygen Delivery Method Room Air 01/10/25 09:20 BMI result Body Mass Index 33.7 Const General: cooperative, healthy appearing, comfortable, no acute distress and anxious Nutritional Appearance: average body habitus Orientation/consciousness: patient oriented x3 Limitations: no limitations Eyes Pupils: Equal, round and reactive pupils present Neuro General: patient oriented x3, gait normal, tone normal, moves all extremities and no focal motor deficits Cranial nerves: Yes Facial sensation intact/muscles of mastication intact, Yes Equal, round and reactive pupils present, Yes Bilaterally intact EOM present, Yes Nystagmus not present, Yes Normal facial strength present, Yes Midline tongue present, Yes Symmetric palate elevation present and Yes Ability to bilaterally elevate shoulders present Cognition (Neuro): normal cognition Gait exam (Neuro): Normal gait present Motor exam (neuro): 5/5 motor strength present throughout and Normal motor muscle tone present throughout Deep tendon reflexes (DTR's): Right triceps reflex intensity grade: 1+, Left triceps reflex intensity grade: 1+, Rt Biceps (C5, C6): 1+, Left biceps reflex intensity grade: 1+, Right brachioradialis reflex intensity grade: 1+, Left brachioradialis reflex intensity grade: 1+, Right patellar reflex intensity grade: 2+ and Left patellar reflex intensity grade: 2+ Coordination: [id number] test normal Assessment & Plan Assessment & Plan (1) Staring episodes: Comment: atypical epsiodes unlikley to be a seizure . She has h/o absence seizures as a child Code(s): R40.4 - Transient alteration of awareness Category: Medical Plan The episodes are likely relate dto anxiety I will evaluate her with MRI and EEG Discussed about avodiing driving when under stress . Monitor episodes Orders: Orders MR head/brain wo con Today R40.4 - Transient alteration of awareness, Z86.69 - Personal history of other diseases of the nervous system and sense organs EEG electroencephalogram Today G40.A09 - Absence epileptic syndrome, not intractable, without status epilepticus, R40.4 - Transient alteration of awareness Coding Level of Care Code New Pt Level 4 (50562) Diagnoses Staring episodes R40.4
[2025-01-10 09:20] VITALS: BP 120/82; PULSE 83; O2SAT 97; BMI 33.7
--- OUTSIDE RECORDS SUMMARY | 2025-01-10 09:38 | XMS_ITS | Encounter Summary ---
Author Organization [facility] Address [address] [place] [address] Care Team Providers Care Unit Coordinator Name Role Phone Unavailable Primary Care Provider Unavailabl e Encounter Details Date Type Department Care Team (Latest Contact Info) Description 12/31/2024 Lab Requisition [facility] Lab [address] [place] [phone] Temi Cross MD [address] [address] Encounter for screening for infections with a predominantly sexual mode of transmission Social History Tobacco Use Types Packs/Day Years Used Date Smoking Tobacco: Never Assessed Comments Unknown Sex and Gender Information Value Date Recorded Sex Assigned at Not on file Legal Sex Female 11:37 PM EST Gender Identity Not on file Sexual Orientation Not on file documented as of this encounter Plan of Treatment Not on file documented as of this encounter Procedures Procedure Name Priority Date/Time Associated Diagnosis Comments CHLAMYDIA TRACHOMATIS AND NEISSERIA GONORRHOEAE PCR Routine 12/31/2024 12:00 AM EDT Encounter for screening for infections with a predominantly sexual mode of transmission documented in this encounter Results * Chlamydia trachomatis and Neisseria gonorrhoeae molecular study (12/31/2024 12:00 AM EDT) Neisseria gonorrhoeae PCR Negative Negative LAB MOLECULAR DIAGNOSTICS METHOD 12/31/2024 4:14 PM EDT [facility] Chlamydia trachomatis PCR Negative Negative LAB MOLECULAR DIAGNOSTICS METHOD 12/31/2024 4:14 PM EDT [facility] Swab Cervix uteri structure / Unknown 12/31/2024 12/31/2024 1:25 PM EDT us Temi Cross MD LAB MICROBIOLOGY - GENER AL ORDERABLES Final Result [facility] [address] [place] [address], documented in this encounter Visit Diagnoses Diagnosis Encounter for screening for infections with a predominantly sexual mode of transmission documented in this encounter
--- OUTSIDE RECORDS SUMMARY | 2025-01-10 09:38 | XMS_ITS | Clinical Summary ---
Author Organization [address] [facility] Address [address] [place] [address] Phone Care Team Providers Care Career Development Engineer Name Role Phone Unavailable Primary Care Provider Unavailabl e Encounters Date Type Department Care Team Description 12/31/2024 Lab Requisition [facility] [address] [facility] [place] [address] Temi Cross MD Encounter for screening for infections with a predominantly sexual mode of transmission from Last 3 Months Social History Tobacco Use Types Packs/Day Years Used Date Smoking Tobacco: Never Assessed Comments Unknown Sex and Gender Information Value Date Recorded Sex Assigned at Not on file Legal Sex Female 11:37 PM EST Gender Identity Not on file Sexual Orientation Not on file Plan of Treatment Health Maintenance Due Date Last Done Comments Varicella Vaccines (1 of 2 - 13+ 2-dose series) 01/26/2017 HPV Vaccines (1 - 3-dose series) 01/26/2019 Meningococcal B Vaccine (1 o f 2 - Standard) 2020 Annual Well Child Visit (3-2 1 years old) 03/13/2022 HIV Screening 03/13/2022 Hepatitis C Screening 03/13/2022 Social Influencers of Health Screening 03/13/2022 DTaP,Tdap,and Td Vaccines (1 - Tdap) 01/26/2023 Hepatitis B Vaccines (1 of 3 - 19+ 3-dose series) 01/26/2023 Depression Screening 04/10/2024 COVID-19 Vaccine (1 - 2023-2 5 season) 2024 Influenza Vaccine (#1) 2024 Gonorrhea/Chlamydia Screening 12/31/2025 12/31/2024 RSV Immunization Adult Patie nts (1 - 1-dose 75+ series) 01/26/2079 HIB Vaccines Aged Out No longer eligi ble based on patient's age to complete this topic Hepatitis A Vaccines Aged Out No long er eligible based on patient's age to complete this topic IPV Vaccines Aged Out No longer eligi ble based on patient's age to complete this topic MMR Vaccines Aged Out No longer eligi ble based on patient's age to complete this topic Meningococcal ACWY Vaccine Aged Out N o longer eligible based on patient's age to complete this topic Pneumococcal Vaccine: Pediat rics (0 to 5 Years) and At-Risk Patients (6 to 49 Years) Aged Out No longer eligi ble based on patient's age to complete this topic RSV Immunization Patients Un ewa 20 months Aged Out No longer eligible b ased on patient's age to complete this topic Procedures Procedure Name Priority Date/Time Associated Diagnosis Comments CHLAMYDIA TRACHOMATIS AND NEISSERIA GONORRHOEAE PCR Routine 12/31/2024 12:00 AM EDT Encounter for screening for infections with a predominantly sexual mode of transmission from Last 3 Months Results * Chlamydia trachomatis and Neisseria gonorrhoeae molecular study (12/31/2024 12:00 AM EDT) Neisseria gonorrhoeae PCR Negative Negative LAB MOLECULAR DIAGNOSTICS METHOD 12/31/2024 4:14 PM EDT [facility] Chlamydia trachomatis PCR Negative Negative LAB MOLECULAR DIAGNOSTICS METHOD 12/31/2024 4:14 PM EDT [facility] Swab Cervix uteri structure / Unknown 12/31/2024 12/31/2024 1:25 PM EDT us Temi Cross MD LAB MICROBIOLOGY - GENER AL ORDERABLES Final Result [facility] [address] [place] [address], from Last 3 Months Insurance ([address] [address] [facility]
== END 2025-01-10 09:47 | disposition home or self-care (01) ==
LOC: HO.HSMS 09:13
PROVIDERS: Visit Provider Psychiatry & Neurology Neurology
DX: R40.4 Transient alteration of awareness (principal)
CPT/HCPCS: 99204

== ENCOUNTER 2025-01-21 15:23 | Outpatient (REF) | payer OTHER, SELFPAY ==
[2025-01-21 15:47] LABS: MANUAL DIFF FLAG NO
[2025-01-21 15:58] LABS: Hematocrit 47.2 % (37.0-47.0); Hemoglobin 15.3 g/dl (12.0-16.0); Imm Gran Abs Auto 0.02 X10*3/uL (0.00-0.03); Imm Gran Pct Auto 0.2 % (0.0-0.4); Lymphocytes Absolute Auto 2.9 X10*3/uL (1.2-4.9); Mean Corpuscular HGB Conc 32.4 g/dl (31.0-35.0); Mean Corpuscular Hemoglobin 27.8 pg (27.0-33.0); Mean Corpuscular Volume 85.8 fL (80.0-98.0); NRBC Abs Auto 0.000 X10*3/uL (0.0-0.012); NRBC Pct Auto 0.0 /100WBC (0.0-0.2); Platelet Count 362 X10*3/uL (160-400); Red Blood Count 5.50 X10*6/uL (4.20-5.50); White Blood Count 9.5 X10*3/uL (4.8-10.8)
[2025-01-21 16:58] LABS: Folate 7.6 ng/mL (> or = 4.0); Vitamin B12 308 pg/mL (200-900)
[2025-01-21 17:33] LABS: Alanine Aminotransferase 22 U/L (0-31); Albumin Level 4.5 g/dL (3.5-5.0); Alkaline Phosphatase 87 U/L (39-117); Anion Gap 10 (12-20); Aspartate Amino Transferase 20 U/L (5-31); Blood Urea Nitrogen 14 mg/dL (9-16); Calcium 9.2 mg/dL (8.4-10.2); Carbon Dioxide 25 mmol/L (22-29); Chloride 111 mmol/L (96-108); Estimated Glomerular Filt Rate > 60; Potassium 4.2 mmol/L (3.3-5.1); Sodium 142 mmol/L (135-145); Total Protein 7.5 g/dL (6.5-8.0)
[2025-01-21 17:39] LABS: Free T4 (Free Thyroxine) 1.18 ng/dL (0.71-1.85)
== END 2025-01-21 15:24 | disposition home or self-care (01) ==
LOC: HO.LAB 15:23
DX: Z00.00 Encounter for general adult medical examination without abnormal findings (principal); Z13.21 Encounter for screening for nutritional disorder; F32.A Depression, unspecified; F41.9 Anxiety disorder, unspecified
CPT/HCPCS: 36415; 80053; 82306; 82607; 82746; 84439; 84443; 85025

== ENCOUNTER → 2025-02-04 16:26 | Outpatient (BNV) | payer OTHER, SELFPAY | PROVIDERS: Visit Provider Radiology Diagnostic Radiology | DX: R40.4 Transient alteration of awareness (principal) | CPT/HCPCS: 70551 ==

== ENCOUNTER 2025-02-04 16:27 | Outpatient (REF) | payer OTHER, SELFPAY ==
--- NOTE | ~2025-02-04 | MR_ITS ---
EXAMINATION: MR BRAIN WITHOUT CONTRAST CLINICAL INFORMATION: Transient alteration of awareness. COMPARISON: None available. TECHNIQUE: MRI of the brain was obtained using routine sequences without contrast. FINDINGS: There is no restricted diffusion to suspect any acute ischemic changes. No magnetic susceptibility artifact seen either to suspect acute or chronic hemorrhagic products. There is normal symmetry of bilateral cerebral cortex no abnormal signal seen in the white matter on T2 FLAIR sequence either to suspect any white matter disease. The lateral ventricles are symmetrical in size and configuration without enlargement. The craniovertebral axis in the posterior fossa appears unremarkable. Normal flow-void signal seen in major cerebral vasculature. Visualized sella, bilateral optic globe and optic nerves are symmetrical. The paranasal sinuses and mastoid air cells are well-aerated. Visualized calvarial bone marrow signal and the scalp soft tissues are normal. MR/MR head/brain wo con IMPRESSION: Unremarkable MRI brain Electronically signed by: Amrit Medel MD 02/05/2025 07:14 AM EDT
--- OUTSIDE RECORDS SUMMARY | 2025-02-04 20:11 | XMS_ITS | Data Portability ---
Author Organization [facility] [address] Address [address] [place] [address] Assessment No assessment recorded. Plan of Treatment [...] Diagnosis SNOMED-CT Code Diagnosis ICD10 Code Diagnosis IMO Codes Diagnosis Note [id number] [address] [place] [address] 03/06/2021 15:53:03 03/06/2021 17:22:49 [id number] [place] [address] 05/18/2020 15:01:03 05/18/2020 17:19:11 Health Concerns Section Related Observation LastModified by Organization Detai ls LastModified Time None Recorded Concern Status LastModified by Organization Details LastModified Time None Recorded Advance Directives Directive None Recorded Payers Insurance Date Sequence Insurance Name Policy Number Policy Blair Covered Member ID Blair Member ID Guarantor Name 11/23/2022 1 [place] [facility] Samreen Clements [id number] Samreen Clements OBGyn Episode No OBEpisode recorded.
--- OUTSIDE RECORDS SUMMARY | 2025-02-04 20:11 | XMS_ITS | Encounter Summary ---
Author Organization [facility] Address [address] [place] [address] Care Team Providers Care Anodizing Line Operator Name Role Phone Unavailable Primary Care Provider Unavailabl e Encounter Details Date Type Department Care Team (Latest Contact Info) Description 12/31/2024 Lab Requisition [facility] Lab [address] [place] [phone] Temi Cross MD [address] [phone] Encounter for screening for infections [...] MOLECULAR DIAGNOSTICS METHOD 12/31/2024 4:[address] [facility] Chlamydia trachomatis PCR Negative Negative LAB MOLECULAR DIAGNOSTICS METHOD 12/31/2024 4:[address] [facility] Swab Cervix uteri structure / Unknown 12/31/2024 12/31/2024 1:25 PM EDT us Temi Cross MD LAB MICROBIOLOGY - GENER AL ORDERABLES Final Result [facility] [address] [place] [address], documented in this encounter Visit Diagnoses Diagnosis Encounter for screening for infections with a predominantly sexual mode of transmission documented in this encounter
--- OUTSIDE RECORDS SUMMARY | 2025-02-04 20:11 | XMS_ITS | Clinical Summary ---
Author Organization 299 [facility] Address [address] [place] [address] Phone Care Team Providers Care Trade Mark Attorney Name Role Phone Unavailable Primary Care Provider Unavailabl e Encounters Date Type Department Care Team Description 12/31/2024 Lab Requisition [facility] - Main Lab 299 [facility] [employer] [place] [address] Temi Cross MD Encounter for [...] Health Maintenance Due Date Last Done Comments HPV Vaccines (1 - 3-dose series) 01/26/2019 [...] 5 season) 2024 Influenza Vaccine (#1) 2024 Cervical Cancer Screening: P ap Smear 01/26/2025 Gonorrhea/Chlamydia Screening 12/31/2025 12/31/2024 RSV Immunization Adult [...] on patient's age to complete this topic Varicella Vaccines Aged Out No longer eligible based on patient's age to [...] MOLECULAR DIAGNOSTICS METHOD 12/31/2024 4:14 PM EDT [facility] Chlamydia trachomatis PCR Negative Negative LAB MOLECULAR DIAGNOSTICS METHOD 12/31/2024 4:14 PM EDT [facility] Swab Cervix uteri structure / Unknown 12/31/2024 12/31/2024 1:25 PM EDT us Temi Cross MD LAB MICROBIOLOGY - GENER AL ORDERABLES Final Result [facility]) [facility] LAB [address] [place] [address], [place] [phone] from Last [address] [place] [address] [address] [place] [address]
== END 2025-02-04 16:28 | disposition home or self-care (01) ==
LOC: HO.MRI 16:27
PROVIDERS: Visit Provider Psychiatry & Neurology Neurology
DX: R40.4 Transient alteration of awareness (principal); Z86.69 Personal history of other diseases of the nervous system and sense organs
CPT/HCPCS: 70551

== ENCOUNTER 2025-02-14 08:37 | Outpatient (REF) | payer OTHER, SELFPAY ==
--- OUTSIDE RECORDS SUMMARY | 2025-02-14 09:11 | XMS_ITS | Data Portability ---
Author Organization [facility], [address] Address [address] [place] [address] Assessment No assessment recorded. Plan of Treatment [...] ICD10 Code Diagnosis IMO Codes Diagnosis Note [id number] [address] [place] [address] 03/06/2021 15:53:03 03/06/2021 17:22:49 [id number] [place] [address] 05/18/2020 15:01:03 05/18/2020 17:19:11 Health Concerns Section Related Observation LastModified by Organization Detai ls LastModified Time None Recorded Concern Status LastModified by Organization Details LastModified Time None Recorded Advance Directives Directive None Recorded Payers Insurance Date Sequence Insurance Name Policy Number Policy Blair Covered Member ID Blair Member ID Guarantor Name 11/23/2022 1 [place] [facility] Samreen Clements [id number] Samreen Clements OBGyn Episode No OBEpisode recorded.
--- OUTSIDE RECORDS SUMMARY | 2025-02-14 09:12 | XMS_ITS | Encounter Summary ---
Author Organization [facility] Address [address] [place] [address] Care Team Providers Care Pvc Monitor Name Role Phone Unavailable Primary Care Provider Unavailabl e Encounter Details Date Type Department Care Team (Latest Contact Info) Description 12/31/2024 Lab Requisition [facility] Lab [address] [place] [phone] Temi Cross MD [address] [address] Encounter for screening for infections [...] MOLECULAR DIAGNOSTICS METHOD 12/31/2024 4:14 PM EDT [facility] Chlamydia trachomatis PCR Negative Negative LAB MOLECULAR DIAGNOSTICS METHOD 12/31/2024 4:14 PM EDT [facility] Swab Cervix uteri structure / Unknown 12/31/2024 12/31/2024 1:25 PM EDT us Temi Cross MD LAB MICROBIOLOGY - GENER AL ORDERABLES Final Result [facility]) [facility] LAB [address] [place] [address], documented in this encounter Visit Diagnoses Diagnosis Encounter for screening for infections with a predominantly sexual mode of transmission documented in this encounter
--- OUTSIDE RECORDS SUMMARY | 2025-02-14 09:12 | XMS_ITS | Clinical Summary ---
Author Organization 299 [facility] Address [address] [place] [address] Phone Care Team Providers Care Brickmason Apprentice Name Role Phone Unavailable Primary Care Provider Unavailabl e Encounters Date Type Department Care Team Description 12/31/2024 Lab Requisition [facility] - Main Lab 299 [facility] [place] [address] Temi Cross MD Encounter for [...] MOLECULAR DIAGNOSTICS METHOD 12/31/2024 4:14 PM EDT [facility] Chlamydia trachomatis PCR Negative Negative LAB MOLECULAR DIAGNOSTICS METHOD 12/31/2024 4:14 PM EDT [facility] Swab Cervix uteri structure / Unknown 12/31/2024 12/31/2024 1:25 PM EDT us Temi Cross MD LAB MICROBIOLOGY - GENER AL ORDERABLES Final Result [facility]) [facility] LAB [address] [place] [address], [place] [phone] from Last [address] [place] [address] [address] [place] [address]
--- NOTE | 2025-02-14 10:06 | EEG_ITS ---
Reason for Exam: R40.4 Transient alteration of awareness, G40.A09 Absence seizures History: Patient reports seizures as a child, last one being at age 6. Patient recently c/o staring episodes. Most are quick, but two months ago patient had an episode that started with staring and then tunnel vision, she was aware of her surrounds and notes anxiety after. That episode lasted for less an 1 minute. Medication: none Technical Description Photic Stimulation: completed Hyperventilation: performed - good effort Behavioral State: cooperative State of Consciousness: awake and drowsy Skull Defect: none Sedation: none Handedness: right Duration of Study: 32 min 26 sec Description: This is a 16 channel EEG with an EKG lead. Patient is reported awake and drowsy during the tracing. During wakefulness, background EEG rhythm is about 10 hertz 5-100 microvolt posteriorly and lower amplitude fast anteriorly. Intermittently sometime left and sometime right temporal area sharp waves were noted and at times asymmetric theta range slowing in right hemisphere. Photic stimulation did not produce any significant driving. Hyperventilation did not produce any significant abnormalities. Cardiac lead did not reveal any significant abnormalities. Impression: Abnormal EEG suggestive of underlying tendency for focal onset seizure disorder, which could result in partial or complex partial seizures. This EEG did not suggest tendency for absence seizures. MTDD
== END 2025-02-14 08:38 | disposition home or self-care (01) ==
LOC: HO.NEURO 08:37
PROVIDERS: Visit Provider Psychiatry & Neurology Neurology
DX: G40.A09 Absence epileptic syndrome, not intractable, without status epilepticus (principal); R40.4 Transient alteration of awareness
CPT/HCPCS: 95816

== ENCOUNTER → 2025-02-14 10:06 | Outpatient (BNV) | payer OTHER, SELFPAY | PROVIDERS: Visit Provider Psychiatry & Neurology Neurology | DX: R94.01 Abnormal electroencephalogram [EEG] (principal); R40.4 Transient alteration of awareness | CPT/HCPCS: 95816 ==

== ENCOUNTER 2025-03-11 10:44 | Outpatient (AMB) | payer OTHER, SELFPAY ==
--- NOTE | 2025-03-11 10:45 | MHC.PC.OV ---
Intake Visit Reasons: 2 month f/u Numerical Control Machine Operator Required: No Accompanied by: Self / Same As Patient Allergies amoxicillin (From Augmentin) Allergy (Verified 03/11/25 10:50) Hives clavulanic acid (From Augmentin) Allergy (Verified 03/11/25 10:50) Hives Penicillins (PCN) Allergy (Verified 03/11/25 10:50) Hives Medication List - Last Reconciled 03/11/25 by Kenisha Booker PA-C albuterol sulfate 90 mcg/actuation (Ventolin HFA) inhalation cholecalciferol (vitamin D3) 25 mcg PO DAILY levetiracetam 500 mg PO BID Tobacco use date assessed: 03/11/25 Dental Screening Dental Screen Date: 03/11/25 Did you have a dental visit in the last 12 months?: Yes Did you have a dental problem in the last 6 months where you did not have access to dental care?: No Was dental information given to patient?: Patient has dentist HPI 2 month f/u HPI Details 20-year-old female with newly diagnosed seizure disorder, depression, anxiety last seen 12/2024 presenting via telehealth for follow up. In review of the notes, patient was seen by Neurology 01/2025 MRI and EEG ordered. MRI was normal and EEG showed underlying seizure disorder and patient was started on Keppra 500 mg b.i.d. and advised against driving. She has follow up 03/25/2025 with Neurology. She tells us today she did not start taking the Wellbutrin due to the seizure disorder. She does continue to have depression and anxiety and is interested in starting a medication for this. She has no other acute concerns today. [facility] Medical History Staring episodes Surgical History History of lobectomy of lung Family History Other Mental health disorder Social History Housing: Apartment Alcohol intake: never Patient Tobacco Use Status: Never used Tobacco e-Cigarette/Vaping Use: Never Used Second Hand Smoke Exposure: No service: No Current occupational status: employed Current occupation: Cognitive needs: No Hearing needs: No Vision needs: No Questionnaire Thrive Questionnaire Date Thrive assessed: 09/11/24 KARL-7 AMB Questionnaire KARL-7 Date KARL - 7 assessed: 09/13/24 Source: Developed by Drs. Darnell Wilcox, Carly Almaguer, Carlos Franco and colleagues, with an educational jessica from [employer]. Review of Systems Const Denies body aches, Denies chills, Denies fever(s), Denies headache(s) and Denies poor appetite Eyes Reports no additional complaints ENT Denies dizziness and Denies headache(s) Card Denies chest pain, Denies lightheadedness and Denies dyspnea Resp Denies cough and Denies dyspnea Reports no additional complaints Musc Reports no additional complaints and Denies abnormal gait Skin/Breast Reports system reviewed and no additional complaints, except as documented Neuro Denies abnormal gait, Denies dizziness and Denies headache(s) Psych Reports no additional complaints Physical exam (Primary Care) Vital Signs: Vital signs and physical exam not performed due to nature of telehealth visit Tobacco/Smoking Status: Tobacco use Status Tobacco use date assessed 01/06/25 01/06/25 11:52 Patient Tobacco Use Status Never used Tobacco 01/06/25 11:52 e-Cigarette/Vaping Use Never Used 01/06/25 11:52 Thrive Assessment: Date of Thrive Assessment Date Thrive assessed 09/11/24 01/06/25 11:52 Telehealth Telehealth Telehealth Platform: Telephone Location of provider rendering services: practice address Location of patient: address on file Patient Identification confirmed using: Name, : Yes Telehealth method: voice only Patient verbally consented to treatment: Yes Patient verbally consented to billing insurance company: Yes Patient informed of any privacy concerns related to visit: Yes Coding Level of Care Code Est Pt Level 3 (45689) Diagnoses Anxiety F41.9 Depression F32.A Seizure disorder G40.909 Assessment & Plan Assessment & Plan (1) Anxiety: Code(s): F41.9 - Anxiety disorder, unspecified Category: Medical Plan: For anxiety and depression plan to start on citalopram daily and patient was counseled on side effects. Plan to follow up in 3 months or sooner as needed (2) Depression: Code(s): F32.A - Depression, unspecified Category: Medical Plan: See above (3) Seizure disorder: Code(s): G40.909 - Epilepsy, unspecified, not intractable, without status epilepticus Category: Medical Plan: Discussed patient's new diagnosis of seizure disorder as well as precautions to be taken. She will follow up with her neurologist next week and she will continue on Keppra 500 mg b.i.d.. Plan This note was constructed using voice recognition software. While every effort has been made to ensure accuracy and government property inspector, still areas may have been included sometimes these areas may affect the content or meeting of the given symptoms. Total time spent caring for the patient today was 20 minutes. This includes time spent before the visit reviewing the chart, time spent during the visit, and time spent after the visit and documentation. Medications: New citalopram 10 mg PO DAILY 90 tabs 0RF Refilled cholecalciferol (vitamin D3) 25 mcg PO DAILY 90 caps 3RF Discontinued bupropion HCl Discontinued Reason: Patient no longer taking 100 mg PO BID 180 tabs 0RF
--- OUTSIDE RECORDS SUMMARY | 2025-03-11 12:30 | XMS_ITS | Clinical Summary ---
Author Organization 299 [facility] Address [address] [place] [address] Phone Care Team Providers Care Teaching Associate Name Role Phone Unavailable Primary Care Provider Unavailabl e Encounters Date Type Department Care Team Description 12/31/2024 Lab Requisition [facility] - Main Lab 299 [facility] [place] [address] Temi Cross MD Encounter for [...] Depression Screening 04/10/2024 COVID-19 Vaccine (1 - 2024-2 6 season) 2024 Influenza Vaccine (#1) 2024 Cervical [...] MOLECULAR DIAGNOSTICS METHOD 12/31/2024 4:14 PM EDT [facility] Chlamydia trachomatis PCR Negative Negative LAB MOLECULAR DIAGNOSTICS METHOD 12/31/2024 4:14 PM EDT [facility] Swab Cervix uteri structure / Unknown 12/31/2024 12/31/2024 1:25 PM EDT us Temi Cross MD LAB MICROBIOLOGY - GENER AL ORDERABLES Final Result [facility]) [facility] [address] [place] [address], [place] [phone] from Last [address] [place] [address] [address] [place] [address]
--- OUTSIDE RECORDS SUMMARY | 2025-03-11 12:30 | XMS_ITS | Encounter Summary ---
Author Organization [facility] Address [address] [place] [address] Care Team Providers Care Advertising Director Name Role Phone Unavailable Primary Care Provider Unavailabl e Encounter Details Date Type Department Care Team (Latest Contact Info) Description 12/31/[address] [facility] Lab [address] [place] [phone] Temi Cross MD [address] [address] Encounter for screening for infections [...] MOLECULAR DIAGNOSTICS METHOD 12/31/2024 4:14 PM EDT [facility] Chlamydia trachomatis PCR Negative Negative LAB MOLECULAR DIAGNOSTICS METHOD 12/31/2024 4:14 PM EDT [facility] Swab Cervix uteri structure / Unknown 12/31/2024 12/31/2024 1:25 PM EDT us Temi Cross MD LAB MICROBIOLOGY - GENER AL ORDERABLES Final Result [facility]) [facility] [address] [place] [address], documented in this encounter Visit Diagnoses Diagnosis Encounter for screening for infections with a predominantly sexual mode of transmission documented in this encounter
--- OUTSIDE RECORDS SUMMARY | 2025-03-11 12:30 | XMS_ITS | Data Portability ---
Author Organization [facility], [address] Address [address] [place] [address] Assessment No assessment recorded. Plan of Treatment [...] ICD10 Code Diagnosis IMO Codes Diagnosis Note [id number] [address] _[address] [place] [address] 03/06/2021 15:53:03 03/06/2021 17:22:49 [id number] [place] [address] 05/18/2020 15:01:03 05/18/2020 17:19:11 Health Concerns Section Related Observation LastModified by Organization Detai ls LastModified Time None Recorded Concern Status LastModified by Organization Details LastModified Time None Recorded Advance Directives Directive None Recorded Payers Insurance Date Sequence Insurance Name Policy Number Policy Blair Covered Member ID Blair Member ID Guarantor Name 11/23/2022 1 [place] [facility] Samreen Clements [id number] Samreen Clements OBGyn Episode No OBEpisode recorded.
== END 2025-03-11 11:06 | disposition home or self-care (01) ==
LOC: HO.HMCH 10:44
DX: F41.9 Anxiety disorder, unspecified (principal); F32.A Depression, unspecified; G40.909 Epilepsy, unspecified, not intractable, without status epilepticus

== ENCOUNTER 2025-03-13 11:32 | Outpatient (AMB) | payer OTHER, SELFPAY ==
--- NOTE | 2025-03-13 11:42 | AM.OFFVISNUR ---
Intake Visit Reasons: flu vaccine Allergies amoxicillin (From Augmentin) Allergy (Verified 03/11/25 10:50) Hives clavulanic acid (From Augmentin) Allergy (Verified 03/11/25 10:50) Hives Penicillins (PCN) Allergy (Verified 03/11/25 10:50) Hives Office Procedures Flu Questionnaire Does the patient have a severe egg allergy?: No Does the patient have severe life threatening allergies?: No Does the patient have a fever or illness today?: No Has the patient ever had Guillain-Tad Syndrome?: No Has the patient ever had any past reaction to a flu shot?: No Immunizations Fluarix [id number] (PF) 45 mcg (15 mcg x 3)/0.5 mL IM syringe Performing Provider: Kenisha Booker PA-C [facility] Administered by: Erica Jones RN on 03/13/25 11:42 Dose Route Admin Location Dispensed Lot Number Expiration Date [facility] Pin Drafting Machine Operator 0.5 mL IM Right Deltoid 0.5 mL [id number] 10/07/25 96313-415-78 Cardiac Guard VIS Given Date VIS Provided VIS Publication Date 03/13/25 Single Vaccine 24 Eligibility Eligibility Date Funding Source Not [facility] Eligible 03/13/25 Private Assessment & Plan Assessment & Plan Orders: Orders Influenza [id number] Immunization Today Z23 - Encounter for immunization Coding
== END 2025-03-13 11:44 | disposition home or self-care (01) ==
LOC: HO.HMCH 11:33
DX: Z23 Encounter for immunization (principal)

== ENCOUNTER → 2025-03-13 11:32 | Outpatient (BNVA) | payer OTHER, SELFPAY | DX: Z23 Encounter for immunization (principal) | CPT/HCPCS: 90471; 90656 ==

== ENCOUNTER 2025-03-25 12:15 | Outpatient (AMB) | payer OTHER, SELFPAY ==
--- NOTE | 2025-03-25 12:18 | A.OFFVIS_ITS ---
Vital Signs 03/25/25 12:20 Height 5 ft 6 in Weight 201 lb 6 oz BMI 32.5 BP 110/82 Blood Pressure Location Rt brachial Position Sitting Pulse 82 Pulse Source Pulse Oximeter Pulse Oximetry (%) 96 Oxygen Delivery Method Room Air Intake Visit Reasons: f/u EEG per MD Intake Note: Follow up EEG results done 02.14.2025 Pattern Chain Maker Supervisor Required: No Accompanied by: mother and sister Allergies amoxicillin (From Augmentin) Allergy (Verified 03/25/25 12:19) Hives clavulanic acid (From Augmentin) Allergy (Verified 03/25/25 12:19) Hives Penicillins (PCN) Allergy (Verified 03/25/25 12:19) Hives HPI Comments Details: 19y/o female comes for F/u of seizures.Her EEG was abnormal Abnormal EEG suggestive of underlying tendency for focal onset seizure disorder, which could result in partial or complex partial seizures. This EEG did not suggest tendency for absence seizures. she was started on keppra 02/17/25 500mg bid - she still has 0-1 episode a week lasting 30 sec As a child she had febrile seizures.Her last childhood seizure was at age 6 ( but generalized tonic clonic seizures). But she was told that she had absence seizures. 2 months ago she had an episode of staring - she was aware of her surroundings but felt like tunnel vision for less than a minute, had palpitations as she was anxious. she was in a car with her boyfriend driving. The whole episode was less than 1 minute. she reports more staring episodes without tunnel vision - but during all these episodes she is aware of surroundings and is associated with palpitations. All these episodes are when she is standing or sitting . she has h/o panic attacks - usually heart rcaing pacing sweaty hand etc PFSH Medical History (Updated 03/25/25 @ 12:48 by Leah Friedman MD) Complex partial seizures Staring episodes Surgical History History of lobectomy of lung Family History Other Mental health disorder Social History Housing: Apartment Alcohol intake: never Patient Tobacco Use Status: Never used Tobacco e-Cigarette/Vaping Use: Never Used Second Hand Smoke Exposure: No service: No Current occupational status: employed Current occupation: Cognitive needs: No Hearing needs: No Vision needs: No Physical Exam Vital Signs: Last Vital Signs Pulse 82 03/25/25 12:20 BP 110/82 03/25/25 12:20 Pulse Ox 96 03/25/25 12:20 Oxygen Delivery Method Room Air 03/25/25 12:20 BMI result Body Mass Index 32.5 Const General: cooperative, healthy appearing, comfortable, no acute distress and anxious Nutritional Appearance: average body habitus Orientation/consciousness: patient oriented x3 Limitations: no limitations Eyes Pupils: Equal, round and reactive pupils present Neuro General: patient oriented x3, gait normal, tone normal, moves all extremities and no focal motor deficits Cranial nerves: Yes Facial sensation intact/muscles of mastication intact, Yes Equal, round and reactive pupils present, Yes Bilaterally intact EOM present, Yes Nystagmus not present, Yes Normal facial strength present, Yes Midline tongue present, Yes Symmetric palate elevation present and Yes Ability to bilaterally elevate shoulders present Cognition (Neuro): normal cognition Gait exam (Neuro): Normal gait present Motor exam (neuro): 5/5 motor strength present throughout and Normal motor muscle tone present throughout Coordination: [id number] test normal Assessment & Plan Assessment & Plan (1) Complex partial seizures: Comment: . She has h/o absence seizures as a child Code(s): G40.209 - Localization-related (focal) (partial) symptomatic epilepsy and ep ileptic syndromes with complex partial seizures, not intractable, without status epilepticus Category: Medical (2) Staring episodes: Comment: atypical epsiodes unlikley to be a seizure . She has h/o absence seizures as a child Code(s): R40.4 - Transient alteration of awareness Category: Medical Plan MRI and EEG - reviewed with patient Discussed about avoidiing driving. Increase levetiracetam 750 mg bid Monitor episodes Medications: Changed From levetiracetam 500 mg PO BID 60 tabs 6RF To levetiracetam 750 mg PO BID 60 tabs 6RF Coding Level of Care Code Est Pt Level 4 (53591) Add On Problem Visit Only Diagnoses Complex partial seizures G40.209 Staring episodes R40.4
[2025-03-25 12:20] VITALS: BP 110/82; PULSE 82; O2SAT 96; BMI 32.5
--- OUTSIDE RECORDS SUMMARY | 2025-03-25 16:05 | XMS_ITS | Encounter Summary ---
Author Organization [facility] Address [address] [place] [address] Care Team Providers Care Soda Fountain Manager Name Role Phone Unavailable Primary Care Provider Unavailabl e Encounter Details Date Type Department Care Team (Latest Contact Info) Description 12/31/2024 Lab Requisition [facility] Lab [address] [place] [phone] Temi Cross MD [address] [address] Encounter for screening for infections [...] MOLECULAR DIAGNOSTICS METHOD 12/31/2024 4:14 PM EDT [facility] Chlamydia trachomatis PCR Negative Negative LAB MOLECULAR DIAGNOSTICS METHOD 12/31/2024 4:14 PM EDT [facility] Swab Cervix uteri structure / Unknown 12/31/2024 12/31/2024 1:25 PM EDT us Temi Cross MD LAB MICROBIOLOGY - GENER AL ORDERABLES Final Result [facility] ([facility]) [facility] [address] [place] [address], documented in this encounter Visit Diagnoses Diagnosis Encounter for screening for infections with a predominantly sexual mode of transmission documented in this encounter
--- OUTSIDE RECORDS SUMMARY | 2025-03-25 16:05 | XMS_ITS | Clinical Summary ---
Author Organization [address] [facility] Address [address] [place] [address] Phone Care Team Providers Care Briar Wood Sorter Name Role Phone Unavailable Primary Care Provider Unavailabl e Encounters Date Type Department Care Team Description 12/31/[address] [facility] [address] [facility] [employer] [address] Temi Cross MD Encounter for [...] MOLECULAR DIAGNOSTICS METHOD 12/31/2024 4:14 PM EDT [facility] Chlamydia trachomatis PCR Negative Negative LAB MOLECULAR DIAGNOSTICS METHOD 12/31/2024 4:14 PM EDT [facility] Swab Cervix uteri structure / Unknown 12/31/2024 12/31/2024 1:25 PM EDT us eTmi Cross MD LAB MICROBIOLOGY - GENER AL ORDERABLES Final Result [facility] [address] [place] [address], [place] [phone] from Last [address] [place] [address] [address] [place] [address]
== END 2025-03-25 12:58 | disposition home or self-care (01) ==
LOC: HO.HSMS 12:15
PROVIDERS: Visit Provider Psychiatry & Neurology Neurology
DX: G40.209 Localization-related (focal) (partial) symptomatic epilepsy and epileptic syndromes with complex partial seizures, not intractable, without status epilepticus (principal); R40.4 Transient alteration of awareness
CPT/HCPCS: 99214; G2211